=== PATIENT | male | born 1950 | race Caucasian/White ===

== ENCOUNTER 2024-10-09 06:18 | Day surgery (SDC) | payer MEDICARE, OTHER, SELFPAY | END 2024-10-09 11:32 | disposition home or self-care (01) | LOC: GI 06:18 | PROVIDERS: ATTENDING PHYSICIAN Specialist | DX: Z12.11 Encounter for screening for malignant neoplasm of colon (principal); K57.30 Diverticulosis of large intestine without perforation or abscess without bleeding; D12.3 Benign neoplasm of transverse colon; D12.2 Benign neoplasm of ascending colon; K63.5 Polyp of colon; Z86.0101 Personal history of adenomatous and serrated colon polyps | CPT/HCPCS: 45385; 88305 ==